=== PATIENT | male | born 1950 | race Caucasian/White ===

== ENCOUNTER → 2023-11-23 | Emergency (ER) | payer OTHER ==
[~2023-11-23] VITALS: Ht 182.9 cm; Wt 77.1 kg
[~2023-11-23] MED LIST: CARB1TAB39 PO; CLON2TAB11 PO; GABA-532 PO; HYDR-3980 PO; OMEP20CA15 PO; TRAM50TA2 PO; clonazePAM 1 MG TABLET ONE
[2023-11-23 15:11] VITALS: TEMP 97.9
[2023-11-23 16:00] VITALS: BP 126/72; O2SAT 95
[2023-11-23] MEDS: clonazePAM 1 MG TABLET PO ONE (16:10)
== END | disposition home or self-care (01) ==
LOC: ER 15:12
DX: G89.29 Other chronic pain (principal); G20.A1 Parkinson's disease without dyskinesia, without mention of fluctuations; F41.9 Anxiety disorder, unspecified; R11.0 Nausea; Z60.2 Problems related to living alone

== ENCOUNTER 2023-12-15 22:15 | Emergency (ER) | payer BC, MEDICAID ==
[~2023-12-15] VITALS: Ht 182.9 cm; Wt 79.4 kg
[~2023-12-15 22:15] MED LIST changes: -clonazePAM 1 MG TABLET ONE
[2023-12-15 23:10] VITALS: BP 143/85; TEMP 98.4; O2SAT 98
[2023-12-16] MEDS ORDERED: VANCOMYCIN 1 GM in IV D5W 250 ML IV ONE
== END 2023-12-15 23:51 | disposition left against medical advice (07) ==
LOC: ER 22:21
DX: L03.115 Cellulitis of right lower limb (principal); G20.A1 Parkinson's disease without dyskinesia, without mention of fluctuations
CPT/HCPCS: J3370; J7060

== ENCOUNTER 2024-06-24 16:53 | Emergency (ER) | payer BC, MEDICAID ==
[~2024-06-24] VITALS: Ht 182.9 cm; Wt 72.6 kg
[2024-06-24] MEDS ORDERED: IV NS 0.9% 1,000 ML BAG IV ONE (18:30)
[2024-06-24] MEDS ORDERED: ONDANSETRON HCL/PF 4 MG/2 ML VIAL IVP ONE (18:30)
[2024-06-24] MEDS ORDERED: ONDANSETRON HCL/PF 4 MG/2 ML VIAL ONE ×2 (18:33→18:53)
[2024-06-24] MEDS ORDERED: CEFTRIAXONE 1 G VIAL IM ONE (19:00)
[2024-06-24] MEDS ORDERED: SULFAMETH/TRIMETH 800/160 MG 1 UDTAB TABLET PO ONE (19:00)
[2024-06-24] MEDS: IV NS 0.9% 1,000 ML BAG IV ONE (19:00)
[2024-06-24] MEDS: ONDANSETRON HCL/PF 4 MG/2 ML VIAL IV ONE (19:00)
[2024-06-24] MEDS: ACETAMINOPHEN 325 MG TABLET PO ONE (19:00)
[2024-06-24 19:43] LABS: BASOPHILS # (AUTO) 0.1 K/uL (0.0-0.2); BASOPHILS % (AUTO) 0.8 % (0.0-2.0); EOSINOPHILS # (AUTO) 0.1 K/uL (0.0-0.7); EOSINOPHILS % (AUTO) 0.9 % (0.0-6.0); HEMATOCRIT 37 % (39-51); HEMOGLOBIN 11.9 g/dL (13.5-17.5); LYMPHOCYTES # (AUTO) 1.4 K/uL (0.8-4.8); LYMPHOCYTES % (AUTO) 11.1 % (20.0-44.0); MEAN CORPUSCULAR HEMOGLOBIN 26 PG (26.0-33.0); MEAN CORPUSCULAR HGB CONC 33 g/dl (31.0-36.0); MEAN CORPUSCULAR VOLUME 80 fL (80-96); MONOCYTES # (AUTO) 0.7 K/uL (0.1-1.30); MONOCYTES % (AUTO) 5.2 % (2.0-12.0); NEUTROPHILS # (AUTO) 10.4 K/uL (1.8-8.9); PLATELET COUNT (AUTO) 457 K/uL (150-450); RED BLOOD CELL COUNT(AUTO) 4.58 MIL/uL (4.5-6.0); RED CELL DISTRIBUTION WIDTH 16.5 % (11.5-15.0); WHITE BLOOD COUNT (AUTO) 12.6 K/uL (4.3-11.0)
[2024-06-24 19:51] LABS: CALCIUM, SERUM 9.6 mg/dL (8.5-10.1); CARBON DIOXIDE 26 mmol/L (21-32); CHLORIDE 98 mmol/L (98-107); CREATININE 1.1 mg/dL (0.6-1.3); GLUCOSE 109 mg/dL (74-106); POTASSIUM 4.5 mmol/L (3.5-5.1); SODIUM SERUM 134 mmol/L (136-145); UREA NITROGEN, BLOOD 25 mg/dL (7-18)
[2024-06-24] MEDS ORDERED: ONDANSETRON 4 MG TAB.RAPDIS ONE (19:53)
[2024-06-24 19:56] LABS: ALANINE AMINOTRANSFERASE 15 U/L (12-78); ALBUMIN 3.2 g/dL (3.4-5.0); ALKALINE PHOSPHATASE 117 U/L (46-116); ASPARTATE AMINOTRANSFERASE 23 U/L (15-37); BILIRUBIN,DIRECT 0.1 mg/dL (0.0-0.2); BILIRUBIN,TOTAL 0.3 mg/dL (0.2-1.0); LIPASE 15 U/L (16-77)
[2024-06-24] MEDS: ONDANSETRON 4 MG TAB.RAPDIS SL ONE (20:23)
[2024-06-24] MEDS ORDERED: ACETAMINOPHEN ES 500 MG TABLET ONE (20:42)
[2024-06-25 00:49] VITALS: BP 135/90; TEMP 98.1; O2SAT 97
== END 2024-06-25 00:50 | disposition home or self-care (01) ==
LOC: ER 16:56
DX: M79.602 Pain in left arm (principal); M79.601 Pain in right arm; R11.0 Nausea; R07.9 Chest pain, unspecified; R06.00 Dyspnea, unspecified; G20.A1 Parkinson's disease without dyskinesia, without mention of fluctuations; I10 Essential (primary) hypertension; Z79.899 Other long term (current) drug therapy; Z60.2 Problems related to living alone
CPT/HCPCS: 99285; 71045; 93005; 85025; 80048; 83690; 80076; 36415; 84484 ×2; J2405; Q0162

== ENCOUNTER 2024-06-29 07:11 | Inpatient (IN) | payer OTHER, MEDICAID ==
[~2024-06-29] VITALS: Ht 182.9 cm; Wt 75.7 kg
[2024-06-29 08:17] LABS: BASOPHILS # (AUTO) 0.1 K/uL (0.0-0.2); BASOPHILS % (AUTO) 0.5 % (0.0-2.0); EOSINOPHILS % (AUTO) 0.3 % (0.0-6.0); HEMATOCRIT 36 % (39-51); HEMOGLOBIN 11.9 g/dL (13.5-17.5); LYMPHOCYTES # (AUTO) 1.7 K/uL (0.8-4.8); LYMPHOCYTES % (AUTO) 12.9 % (20.0-44.0); MEAN CORPUSCULAR HEMOGLOBIN 26 PG (26.0-33.0); MEAN CORPUSCULAR HGB CONC 33 g/dl (31.0-36.0); MEAN CORPUSCULAR VOLUME 80 fL (80-96); MONOCYTES # (AUTO) 0.9 K/uL (0.1-1.30); NEUTROPHILS # (AUTO) 10.3 K/uL (1.8-8.9); NEUTROPHILS % (AUTO) 79.3 % (43.0-81.0); PLATELET COUNT (AUTO) 510 K/uL (150-450); RED BLOOD CELL COUNT(AUTO) 4.58 MIL/uL (4.5-6.0); RED CELL DISTRIBUTION WIDTH 17.2 % (11.5-15.0)
[2024-06-29 08:18] LABS: CALCIUM, SERUM 9.4 mg/dL (8.5-10.1); CARBON DIOXIDE 25 mmol/L (21-32); CHLORIDE 97 mmol/L (98-107); CREATININE 1.3 mg/dL (0.6-1.3); GLUCOSE 111 mg/dL (74-106); POTASSIUM 3.6 mmol/L (3.5-5.1); SODIUM SERUM 134 mmol/L (136-145); UREA NITROGEN, BLOOD 43 mg/dL (7-18)
[2024-06-29 08:20] LABS: SERUM AMMONIA 7 umol/L (11-32)
[2024-06-29 08:24] LABS: LACTIC ACID 1.6 mmol/L (0.4-2.0)
[2024-06-29 08:33] LABS: ALANINE AMINOTRANSFERASE 24 U/L (12-78); ALBUMIN 3.6 g/dL (3.4-5.0); ALCOHOL, BLOOD < 3 mg/dL (0-10); ASPARTATE AMINOTRANSFERASE 23 U/L (15-37); BILIRUBIN,DIRECT 0.2 mg/dL (0.0-0.2); BILIRUBIN,TOTAL 0.5 mg/dL (0.2-1.0); SALICYLATE 4.5 mg/dL (2.8-20.0); TOTAL PROTEIN, SERUM 8.5 g/dL (6.4-8.2)
[2024-06-29 08:46] LABS: ALKALINE PHOSPHATASE 101 U/L (46-116)
[2024-06-29 08:47] LABS: ACETAMINOPHEN <10 ug/ml (10-30)
[2024-06-29] MEDS: IV NS 0.9% 1,000 ML BAG IV ONE (08:50)
[2024-06-29 09:03] LABS: APPEARANCE,URINE CLEAR (CLEAR); BILIRUBIN,URINE NEGATIVE (NEGATIVE); BLOOD, URINE NEGATIVE Ery/uL (NEGATIVE); COLOR,URINE DARK YELLOW (YELLOW); KETONES,URINE 1+ mg/dL (NEGATIVE); LEUKOCYTE ESTERASE ,URINE NEGATIVE (NEGATIVE); NITRITE, URINE NEGATIVE (NEGATIVE); PROTEIN,URINE TRACE mg/dl (NEGATIVE); UGLUCOSE NEGATIVE (NEGATIVE)
[2024-06-29 09:11] LABS: AMPHETAMINE, URINE NEGATIVE (NEGATIVE); BARBITURATE, URINE NEGATIVE (NEGATIVE); BENZODIAZEPINE, URINE NEGATIVE (NEGATIVE); CANNABINOID, URINE NEGATIVE (NEGATIVE); COCCAINE, URINE NEGATIVE (NEGATIVE); PHENCYCLIDINE SCREEN,URINE NEGATIVE (NEGATIVE)
[2024-06-29 09:12] LABS: OPIATE, URINE POSITIVE (NEGATIVE)
[2024-06-29 09:19] LABS: ADD URINE CULTURE NO; BACTERIA,URINE Few /HPF (None Seen); MUCUS,URINE Few /LPF (None Seen); RBC,URINE 0-2 /HPF (0-2); SQUAMOUS EPITHELIAL CELL,UR None Seen /HPF (None Seen); WBC,URINE 0-2 /HPF (0-3)
[2024-06-29] MEDS: clonazePAM 1 MG TABLET PO SCH (17:50)
[2024-06-29] MEDS: HYDROCODONE/APAP 10/325MG TABLET PO SCH (17:50)
[2024-06-29] MEDS: GABAPENTIN 100 MG CAPSULE PO SCH (17:50)
[2024-06-29] MEDS: CARBIDOPA/LEVA CR 25/100MG 1 TAB.SA PO SCH (17:50)
[2024-06-29 18:00] VITALS: BP 171/83; TEMP 97.9
[2024-06-29 20:00] VITALS: BP 123/78; TEMP 98; O2SAT 98
[2024-06-29] MEDS: ATORVASTATIN 40 MG TABLET PO SCH (21:43)
[2024-06-29] MEDS: TRAMADOL HCL 50 MG TABLET PO PRN (21:45)
[2024-06-29] MEDS: ZOLPIDEM TARTRATE 5 MG TABLET PO PRN (22:43)
[2024-06-30 07:00] VITALS: BP 162/101; TEMP 97.5; O2SAT 94
[2024-06-30] MEDS: ASPIRIN EC 81 MG TABLET.DR PO ONE (09:06)
[2024-06-30] MEDS: PANTOPRAZOLE 40 MG TABLET.DR PO SCH (09:06)
[2024-06-30] MEDS: CLOPIDOGREL BISULFATE 75 MG TABLET PO SCH (09:09)
[2024-06-30] MEDS ORDERED: GADOTERATE MEGLUMINE 10 MMOL/20 ML VIAL IV ONE (09:12)
[2024-06-30 09:54] LABS: BASOPHILS # (AUTO) 0.1 K/uL (0.0-0.2); BASOPHILS % (AUTO) 0.5 % (0.0-2.0); EOSINOPHILS # (AUTO) 0.1 K/uL (0.0-0.7); HEMATOCRIT 42 % (39-51); LYMPHOCYTES # (AUTO) 1.9 K/uL (0.8-4.8); LYMPHOCYTES % (AUTO) 16.5 % (20.0-44.0); MEAN CORPUSCULAR HEMOGLOBIN 26 PG (26.0-33.0); MEAN CORPUSCULAR HGB CONC 31 g/dl (31.0-36.0); MEAN CORPUSCULAR VOLUME 84 fL (80-96); MONOCYTES # (AUTO) 0.6 K/uL (0.1-1.30); MONOCYTES % (AUTO) 5.3 % (2.0-12.0); NEUTROPHILS # (AUTO) 8.6 K/uL (1.8-8.9); NEUTROPHILS % (AUTO) 76.7 % (43.0-81.0); PLATELET COUNT (AUTO) 391 K/uL (150-450); RED BLOOD CELL COUNT(AUTO) 4.97 MIL/uL (4.5-6.0); RED CELL DISTRIBUTION WIDTH 17.7 % (11.5-15.0); WHITE BLOOD COUNT (AUTO) 11.2 K/uL (4.3-11.0)
[2024-06-30] MEDS ORDERED: CT SWABBABLE VALVE TRANS SET 1 EA INFUS.SET MC ONE (10:00)
[2024-06-30] MEDS ORDERED: IOHEXOL-350 100 ML VIAL IV ONE (10:00)
[2024-06-30] MEDS ORDERED: IV NS 0.9% 250 ML IV ONE (10:00)
[2024-06-30 10:06] LABS: CREATININE 1.1 mg/dL (0.6-1.3); POTASSIUM 3.3 mmol/L (3.5-5.1)
[2024-06-30 10:18] LABS: CHOLESTEROL 176 mg/dL (<200); HDL CHOLESTEROL 46 mg/dL (40-60); LDL 112 mg/dL (0-99); TRIGLYCERIDES 102 mg/dL (30-150)
[2024-06-30] MEDS: METHADONE HCL 10 MG TABLET PO SCH (13:18)
[2024-06-30 16:00] VITALS: BP 160/95; TEMP 97.7; O2SAT 96
[2024-06-30] MEDS: DOXYCYCLINE HYCLATE (100 MG) 100 MG TABLET PO SCH (18:47)
[2024-06-30 20:00] VITALS: BP 149/88; TEMP 97.7; O2SAT 95
[2024-07-01] MEDS ORDERED: ASPI-1420 PO (07:46)
[2024-07-01] MEDS ORDERED: ATOR40TA PO (07:46)
[2024-07-01] MEDS ORDERED: DOXY100T2 PO (07:46)
[2024-07-01] MEDS ORDERED: CLOP75TA15 PO (07:46)
[2024-07-01 08:00] VITALS: BP 152/83; TEMP 97.6; O2SAT 95
[2024-07-01 16:00] VITALS: BP 138/96; TEMP 97.5; O2SAT 97
[2024-07-01 20:00] VITALS: BP 132/90; TEMP 97.5; O2SAT 96
[2024-07-02 08:47] VITALS: BP 143/88; TEMP 97.3; O2SAT 96
[2024-07-02] MEDS: ONDANSETRON 4 MG TAB.RAPDIS SL PRN (09:52)
[2024-07-02 17:07] VITALS: BP 118/67; TEMP 98.1; O2SAT 95
== END 2024-07-02 18:00 | DRG 64 ==
LOC: ER 07:17 → MED 15:17
PROVIDERS: ADMIT Internal Medicine; ATTEND Internal Medicine
DX: I63.9 Cerebral infarction, unspecified (principal); G93.41 Metabolic encephalopathy; F11.20 Opioid dependence, uncomplicated; G20.A1 Parkinson's disease without dyskinesia, without mention of fluctuations; L73.2 Hidradenitis suppurativa; F02.80 Dementia in other diseases classified elsewhere, unspecified severity, without behavioral disturbance, psychotic disturbance, mood disturbance, and anxiety; I10 Essential (primary) hypertension; Z86.19 Personal history of other infectious and parasitic diseases; R53.1 Weakness; G89.29 Other chronic pain; R29.700 NIHSS score 0; Z20.822 Contact with and (suspected) exposure to COVID-19; D49.6 Neoplasm of unspecified behavior of brain
CPT/HCPCS: 36415; 70450-TC; 70496-TC; 70498-TC; 70553-TC; 71045-TC; 72158-TC; 80048-TC; 80061-TC; 80076-TC; 81001; 82140-TC; 83605-TC; 84443-TC; 85025-TC; 87040-TC; 92507-TC; 92521; 93307-TC; 97110-TC; 97112-TC; 97116-TC; 97530-TC; 97535-TC; A6253; A6403; A9575; G0378; G0480; J7030; J7050; Q0162; Q9967

== ENCOUNTER 2025-02-13 14:53 | Emergency (ER) | payer OTHER, MEDICAID ==
[~2025-02-13] VITALS: Ht 180.3 cm; Wt 89.8 kg
[~2025-02-13 14:53] MED LIST changes: +ASPI-1420 PO; +ATOR40TA PO; +CLOP-32 PO; +DOXY100T2 PO
[2025-02-13] MEDS ORDERED: DICYCLOMINE HCL 10 MG CAPSULE PO ONE (15:03)
[2025-02-13] MEDS ORDERED: ONDANSETRON HCL/PF 4 MG/2 ML VIAL ONE (15:03)
[2025-02-13] MEDS: ONDANSETRON HCL/PF 4 MG/2 ML VIAL IVP ONE (15:50)
[2025-02-13] MEDS: IV LR 1000 ML 1,000 ML IV ONE (15:50)
[2025-02-13 15:53] LABS: CALCIUM, SERUM 8.6 mg/dL (8.5-10.1); CREATININE 1.4 mg/dL (0.6-1.3); SODIUM SERUM 141 mmol/L (136-145); UREA NITROGEN, BLOOD 26 mg/dL (7-18)
[2025-02-13 15:58] LABS: ASPARTATE AMINOTRANSFERASE 28 U/L (15-37); TOTAL PROTEIN, SERUM 8.3 g/dL (6.4-8.2)
[2025-02-13] MEDS: DICYCLOMINE HCL 10 MG CAPSULE PO ONE (16:00)
[2025-02-13 16:06] LABS: PLATELET COUNT (AUTO) 372 K/uL (150-450); RED BLOOD CELL COUNT(AUTO) 4.58 MIL/uL (4.5-6.0); RED CELL DISTRIBUTION WIDTH 17.7 % (11.5-15.0); WHITE BLOOD COUNT (AUTO) 9.0 K/uL (4.3-11.0)
[2025-02-13] MEDS ORDERED: MORP10SO PO (16:14)
[2025-02-13] MEDS ORDERED: CARB1TAB33 PO (16:14)
[2025-02-13] MEDS ORDERED: CLON2TAB11 PO (16:14)
[2025-02-13] MEDS ORDERED: ASPI-1169 PO (16:14)
[2025-02-13] MEDS ORDERED: GABA-532 PO (16:14)
[2025-02-13] MEDS ORDERED: DONE5TAB34 PO (16:14)
[2025-02-13] MEDS ORDERED: ONDA4TAB5 PO (16:14)
[2025-02-13] MEDS ORDERED: IV NS 0.9% 250 ML IV ONE (16:24)
[2025-02-13] MEDS ORDERED: IOHEXOL-350 100 ML VIAL IV ONE (16:24)
[2025-02-13] MEDS ORDERED: ESMOLOL IN SODIUM CHLORIDE,ISO 2,000 MG in PREMIX 1 EA IV PRN (18:30)
[2025-02-13] MEDS: ESMOLOL IVPB PREMIX 2,500 MG in PREMIX 1 EA IV PRN (18:31)
[2025-02-13 20:00] LABS: APPEARANCE,URINE CLEAR (CLEAR); BLOOD, URINE NEGATIVE Ery/uL (NEGATIVE); LEUKOCYTE ESTERASE ,URINE NEGATIVE (NEGATIVE); NITRITE, URINE NEGATIVE (NEGATIVE); UGLUCOSE NEGATIVE (NEGATIVE)
[2025-02-13] MEDS ORDERED: NICARDIPINE IN DEXTROSE,ISO-OS 200 ML IV ONE (23:24)
[2025-02-13 23:33] VITALS: TEMP 98.2; O2SAT 95
[2025-02-13] MEDS: NICARDIPINE IN NACL, ISO-OSM 200 ML IV PRN (23:33)
[2025-02-14] MEDS ORDERED: ESMOLOL IVPB PREMIX 250 ML IV ONE (00:35)
[2025-02-14 00:40] VITALS: BP 104/70
== END 2025-02-14 00:54 ==
LOC: ER 15:03
DX: I71.02 Dissection of abdominal aorta (principal); G20.A1 Parkinson's disease without dyskinesia, without mention of fluctuations; F02.80 Dementia in other diseases classified elsewhere, unspecified severity, without behavioral disturbance, psychotic disturbance, mood disturbance, and anxiety; I10 Essential (primary) hypertension; R06.02 Shortness of breath; Z98.890 Other specified postprocedural states; Z86.19 Personal history of other infectious and parasitic diseases; Z79.899 Other long term (current) drug therapy; Z79.82 Long term (current) use of aspirin; Z20.822 Contact with and (suspected) exposure to COVID-19
CPT/HCPCS: 99291; 74174; 96366; 96365; 71275; 71045; 96361; 96375; 87426; 99292; 93005 ×2; 87804 ×2; 85025; 80048; 83690; 80076; 83735; 81003; 36415; 84484 ×2; 87081; 83880; J2405; J7120; J7050; A4216 ×4; J3490 ×6; Q9967